=== PATIENT | male | born 1955 | race African-American/Black ===

== ENCOUNTER 2016-07-10 01:17 | Emergency (ER) | payer MEDICAID, OTHER ==
[~2016-07-10] VITALS: Ht 175.3 cm; Wt 86.2 kg
[2016-07-10] MEDS ORDERED: LORAZEPAM INJ 2 MG/ML VIAL ONE (01:29)
[2016-07-10] MEDS ORDERED: LORAZEPAM INJ 2 MG/ML VIAL IM ONE (02:00)
[2016-07-10 05:43] VITALS: BP 112/70
== END 2016-07-10 05:44 | disposition home or self-care (01) ==
LOC: ER 01:19
DX: R56.9 Unspecified convulsions (principal); I10 Essential (primary) hypertension
CPT/HCPCS: 82962; 96372; 99283; A4606; J2060; Z7610

== ENCOUNTER 2016-07-12 11:23 | Emergency (ER) | payer MEDICAID ==
[~2016-07-12] VITALS: Ht 175.3 cm; Wt 86.2 kg
[2016-07-12] MEDS ORDERED: LEVETIRACETAM (500MG) 500 MG in IV NS 0.9% 100 ML IV ONE (12:00)
[2016-07-12] MEDS ORDERED: ACETAMINOPHEN ES 500 MG TABLET PO ONE (12:00)
[2016-07-12] MEDS ORDERED: ACETAMINOPHEN ES 500 MG TABLET ONE (12:05)
[2016-07-12] MEDS ORDERED: IV SET PRIMARY PUMP SET 1 EA INFUS.SET MC ONE (12:05)
[2016-07-12 13:00] VITALS: BP 132/73
== END 2016-07-12 13:00 | disposition home or self-care (01) ==
LOC: ER 11:24
DX: G40.909 Epilepsy, unspecified, not intractable, without status epilepticus (principal); I10 Essential (primary) hypertension; R79.89 Other specified abnormal findings of blood chemistry; Z91.14 Patient's other noncompliance with medication regimen
CPT/HCPCS: 82962; 96365; 99284; A4606; J1953; J7030; Z7610

== ENCOUNTER 2017-11-05 02:42 | Emergency (ER) | payer MEDICAID, OTHER ==
[~2017-11-05] VITALS: Ht 175.3 cm; Wt 74.8 kg
--- NOTE | 2017-11-05 02:42 | NUR ---
PT FOUND IN STREET BY JUWAN "DEVIL TOOK HIM TO DO IT" PT DENIES SI/ HI. DENIES DRUG USE. VSS NAD A/OX4 ABLE TO MAKE NEEDS KNOWN. WILL CONTINUE TO MONITOR FOR ANY CHANGES DURING THE SHIFT.
--- NOTE | 2017-11-05 02:45 | NUR ---
DANICA GRANADO AT [facility] Addendum: 11/05/17 at 0431 by PAULINE Kali SMITH
[2017-11-05 03:27] LABS: BASOPHILS # (AUTO) 0.1 /CMM (0.0-0.2); BASOPHILS % (AUTO) 1.2 % (0.0-2.0); EOSINOPHILS % (AUTO) 1.9 % (0.0-6.0); HEMATOCRIT 41 % (39-51); HEMOGLOBIN 13.9 g/dL (13.5-17.5); LYMPHOCYTES # (AUTO) 1.5 /CMM (0.8-4.8); LYMPHOCYTES % (AUTO) 24.1 % (20.0-44.0); MEAN CORPUSCULAR HEMOGLOBIN 29 PG (26.0-33.0); MEAN CORPUSCULAR HGB CONC 34 g/dl (31.0-36.0); MEAN CORPUSCULAR VOLUME 85 fL (80-96); MONOCYTES # (AUTO) 0.7 /CMM (0.1-1.30); NEUTROPHILS # (AUTO) 3.7 /CMM (1.8-8.9); NEUTROPHILS % (AUTO) 61.8 % (43.0-81.0); PLATELET COUNT (AUTO) 263 /CMM (150-450); RDW COEFFICIENT OF VARIATION 12.6 (11.5-15.0); RED BLOOD CELL COUNT(AUTO) 4.83 MIL/uL (4.5-6.0); WHITE BLOOD COUNT (AUTO) 6.1 K/uL (4.3-11.0)
[2017-11-05 03:33] LABS: APPEARANCE,URINE CLEAR (CLEAR); BILIRUBIN,URINE NEGATIVE (NEGATIVE); BLOOD, URINE NEGATIVE Ery/uL (NEGATIVE); COLOR,URINE YELLOW (YELLOW); KETONES,URINE NEGATIVE (NEGATIVE); LEUKOCYTE ESTERASE ,URINE NEGATIVE (NEGATIVE); NITRITE, URINE NEGATIVE (NEGATIVE); PH,URINE 5.5 (5.0-8.0); PROTEIN,URINE NEGATIVE (NEGATIVE); UGLUCOSE NEGATIVE (NEGATIVE); UROBILINOGEN,URINE 0.2 EU/dL (0.2)
[2017-11-05] MEDS ORDERED: LEVETIRACETAM (250 MG) 250 MG TABLET PO ONE ×3 (03:33→04:00)
[2017-11-05 03:43] LABS: CALCIUM, SERUM 8.8 mg/dL (8.5-10.1); CARBON DIOXIDE 31 mmol/L (21-32); CHLORIDE 103 mmol/L (98-107); GLUCOSE 111 mg/dL (74-106); POTASSIUM 3.8 mmol/L (3.5-5.1); SODIUM SERUM 143 mmol/L (136-145); UREA NITROGEN, BLOOD 8 mg/dL (7-18)
[2017-11-05 03:48] LABS: ALANINE AMINOTRANSFERASE 30 U/L (12-78); ALBUMIN 3.9 g/dL (3.4-5.0); ALCOHOL, BLOOD < 3 mg/dL (0-0); ALKALINE PHOSPHATASE 64 U/L (46-116); ASPARTATE AMINOTRANSFERASE 34 U/L (15-37); BILIRUBIN,DIRECT 0.1 mg/dL (0.0-0.2); BILIRUBIN,TOTAL 0.2 mg/dL (0.2-1.0); SALICYLATE 4.8 mg/dL (2.8-20.0); TOTAL PROTEIN, SERUM 7.2 g/dL (6.4-8.2)
[2017-11-05 03:50] LABS: ACETAMINOPHEN 0 ug/ml (10-30)
--- NOTE | 2017-11-05 04:06 | NUR ---
CLINIC SPECIALIST MICHELLE PAGED FOR PSYCH EVAL.
--- NOTE | 2017-11-05 08:57 | NUR ---
Spoke with [facility] intake, patient will go to [facility] accepted by Dr Thompson. For report call [phone].
--- NOTE | 2017-11-05 09:15 | NUR ---
REPORT GIVEN TO JEANETTE VALDES FOR [facility] UPON TRANSFER
[2017-11-05 10:06] VITALS: BP 129/84
--- NOTE | 2017-11-05 10:06 | NUR ---
Patient discharged to [facility] GOING TO [facility] in stable condition. Written and verbal after care instructions given. Patient verbalizes understanding of instruction.
== END 2017-11-05 10:08 | disposition short-term general hospital (02) ==
LOC: ER 02:43
DX: R45.851 Suicidal ideations (principal); R56.9 Unspecified convulsions; I10 Essential (primary) hypertension; F10.10 Alcohol abuse, uncomplicated; F32.9 Major depressive disorder, single episode, unspecified; F43.10 Post-traumatic stress disorder, unspecified; Y90.0 Blood alcohol level of less than 20 mg/100 ml; Z59.0 Homelessness
CPT/HCPCS: 36415; 80048; 80076; 80305; 80329; 81001; 85025; 99285; A4606; G0480 ×2; Z7610; 81000-TC